=== PATIENT | female | born 1970 | race African-American/Black ===

== ENCOUNTER 2016-08-12 23:26 | Emergency (ER) | payer OTHER ==
[~2016-08-12] VITALS: Ht 160 cm; Wt 69.1 kg
[~2016-08-12 23:26] MED LIST: AMOX500T PO; CORTIS10A RIGHT EAR; HYZA100T4 PO; OXYC-360 PO; SULAR PO
[2016-08-12 23:32] VITALS: BP 141/102; PULSE 112; RESP 20; TEMP 97.9; O2SAT 98
[2016-08-13] MEDS ORDERED: LISI-515 PO (00:13)
[2016-08-13] MEDS ORDERED: BACT800T5 PO (00:13)
[2016-08-13] MEDS ORDERED: HYDR25TA5 PO (00:13)
[2016-08-13] MEDS ORDERED: PRED50 PO (00:29)
[2016-08-13] MEDS ORDERED: RANITIDINE HCL 150 MG TAB PO ONE (00:30)
[2016-08-13] MEDS ORDERED: EPINEPHrine HCL (1:1000) 1 MG/ML VIAL IM ONE ×2 (00:30→01:30)
[2016-08-13] MEDS ORDERED: predniSONE 20 MG TAB PO ONE (00:30)
--- NOTE | 2016-08-13 00:30 | PD ---
HPI Chief Complaint: Allergic/Adverse Reaction Time Seen by Provider: 00:15 Travel History International Travel<30 days: No Contact w/Intl Traveler<30days: No Traveled to known affect area: No History of Present Illness HPI The patient is a 46-year-old female with no known allergies who complains of itching all over her abdomen, back for one hour. She developed a rash on back. She states she has itching around her breasts as well. She states there is no possibility of . She denies any shortness of breath or chest pain. She states she has had similar problems in the past and her rash responded to epinephrine. She took 2, 25 mg Benadryl tablets at 9:30 PM tonight. PFSH Past Medical History Blood Disorders: No Cardiovascular Problems: Yes Cerebrovascular Accident: No Diminished Hearing: No Endocrine: No Gastrointestinal Disorders: Yes (IBS) Genitourinary: No Headaches: Yes Hiatal Hernia: No Hypertension: Yes Immune Disorder: No Musculoskeletal: No Neurologic: No Psychiatric: No Reproductive: No Respiratory: Yes (ENVIRONMENTAL ALLERGIES) Immunizations Current: Yes Tetanus Vaccination: < 5 Years Influenza Vaccination: Yes ?: Not Menopausal: No : 2 Para: 2 Past Surgical History Appendectomy: Yes (1984) Section: Yes (1990, 1997) Gynecologic Surgery: Yes (2 c-sections) Hysterectomy: Yes (2006) Pacemaker: No Other Surgery: Yes Social History Alcohol Use: Yes (OCCASIONAL) Tobacco Use: No Substance Use: No Allergies-Medications (Allergen,Severity, Reaction): Coded Allergies: No Known Allergies (Verified , 08/13/16) Reported Meds & Prescriptions Reported Meds & Active Scripts Active Zantac (Ranitidine HCl) 150 Mg Tab 150 Mg PO BID Prednisone 50 Mg Tab 50 Mg PO BID Reported Hydrochlorothiazide 25 Mg Tab 25 Mg PO DAILY Lisinopril 20 Mg Tab 20 Mg PO DAILY Bactrim DS (Sulfamethoxazole-Trimethoprim) 800-160 Mg Tab 1 Tab PO BID Review of Systems Except as stated in HPI: all other systems reviewed are Neg Physical Exam Narrative GENERAL: The patient is alert, oriented 3 in moderate apparent distress with her pruritic skin rash. SKIN: Warm and dry. HEAD: Atraumatic. Normocephalic. EYES: Pupils equal and round. No scleral icterus. No injection or drainage. ENT: No nasal bleeding or discharge. Mucous membranes pink and moist. NECK: Trachea midline. No JVD. CARDIOVASCULAR: Regular rate and rhythm. No murmur appreciated. RESPIRATORY: No accessory muscle use. Clear to auscultation. Breath sounds equal bilaterally. GASTROINTESTINAL: Abdomen soft, non-tender, nondistended. Hepatic and splenic margins not palpable. MUSCULOSKELETAL: No obvious deformities. No clubbing. No cyanosis. No edema. NEUROLOGICAL: Awake and alert. No obvious cranial nerve deficits. Motor grossly within normal limits. Normal speech. PSYCHIATRIC: Appropriate mood and affect; insight and judgment normal. Data Data Last Documented VS Vital Signs Date Time Temp Pulse Resp B/P Pulse Ox O2 Delivery O2 Flow Rate FiO2 08/13/16 00:13 18 98 Room Air 08/12/16 23:32 97.9 112 141/102 Orders Ecg Monitoring (08/13/16 00:22) Oximetry (08/13/16 00:22) Prednisone (Deltasone) (08/13/16 00:30) Epinephrine (1:1000) Inj (Adrenalin (1:1 (08/13/16 00:30) Ranitidine (Zantac) (08/13/16 00:30) Famotidine (Pepcid) (08/13/16 00:45) Epinephrine (1:1000) Inj (Adrenalin (1:1 (08/13/16 01:30) MDM Medical Decision Making Medical Screen Exam Complete: Yes Emergency Medical Condition: Yes Medical Record Reviewed: Yes Differential Diagnosis Angioedema, allergic reaction, cellulitis Narrative Course It is now 0145 and the patient feels much better and her itching has subsided. Plan: The patient be given prednisone on a tapered course as well as Zantac twice daily. She can take Benadryl 50 mg twice daily as well. If this becomes a recurrent problem she should follow-up with an construction controller. Additional Instructions: As we discussed, the prednisone is taken one tablet twice daily for 4 days followed by one tablet once daily for 4 days. If this problem becomes recurrent , you should follow-up with an construction controller to find what you are allergic to. Med/Other Pt SpecificInfo: Prescription(s) given Scripts Ranitidine (Zantac)150 Mg Chs163 Mg PO BID #30 TAB Ref 0 Prov:Artis Serrano MD 08/13/16 Prednisone 50 Mg Tab50 Mg PO BID #12 TAB Ref 0 Prov:Artis Serrano MD 08/13/16 Disposition: 01 DISCHARGE HOME Condition: Stable Artis Serrano MD Aug 13, 2016 00:30
[2016-08-13] MEDS ORDERED: ZANT150T2 PO (00:32)
[2016-08-13] MEDS ORDERED: FAMOTIDINE 20 MG TAB PO ONE (00:45)
[2016-08-13 02:09] VITALS: BP 139/95
== END 2016-08-13 02:11 | disposition home or self-care (01) ==
LOC: PHED 23:26
DX: L29.8 Other pruritus (principal); T78.40XA Allergy, unspecified, initial encounter; I10 Essential (primary) hypertension
CPT/HCPCS: 96372; 99282; J0171; J7512